=== PATIENT | male | born 1980 | race Caucasian/White ===

== ENCOUNTER 2022-09-16 15:47 | Emergency (ER) | payer OTHER, SELFPAY ==
--- NOTE | 2022-09-16 15:50 | XRR_ITS ---
PROCEDURE INFORMATION: Exam: XR Chest Exam date and time: 09/16/2022 4:03 PM Age: 42 years old Clinical indication: Pain; Angina pectoris; Additional info: Chest pain TECHNIQUE: Imaging protocol: Radiologic exam of the chest. Views: 1 view. COMPARISON: No relevant prior studies available. FINDINGS: Lungs: Unremarkable. No consolidation. Pleural spaces: Unremarkable. No pleural effusion. No pneumothorax. Heart/Mediastinum: Unremarkable. No cardiomegaly. Diaphragm: There is mild elevation of the right hemidiaphragm Bones/joints: Un. remarkable. XR/XR chest 1V portable [id number] IMPRESSION: No acute findings.
--- NOTE | 2022-09-16 15:55 | ECG_ITS ---
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 Measurements Intervals [place] Rate: 87 P: 42 ME: 119 QRS: 52 QRSD: 84 T: 54 QT: 367 QTc: 442 Interpretive Statements SINUS RHYTHM WITH SHORT ME INTERVAL No previous ECG available for comparison Electronically Signed On 09-16-2022 20:26:58 CDT by Man Driver M.D. [id number]
[2022-09-16 15:57] VITALS: BP 147/97; PULSE 103; RESP 14; TEMP 36.7; O2SAT 96; BMI 30.7
[2022-09-16 16:28] LABS: Basophils # 0.1 10^3/uL (0.0-0.1); Basophils % 0.3 %; Hematocrit 43.3 % (42.0-52.0); Hemoglobin 14.7 g/dL (11.7-16.6); Lymphocytes % 5.5 %; Mean Corpuscular HGB Conc 33.9 g/dL (30.0-36.0); Mean Corpuscular Hemoglobin 28.7 pg (28.0-34.0); Mean Corpuscular Volume 84.4 fl (80-94); Mean Platelet Volume 10.1 fL (7.4-10.4); Monocytes # 0.5 10^3/uL (0.2-0.9); Monocytes % 2.8 %; Neutrophils # 16.97 10^3/uL (1.8-7.7); Neutrophils % 90.7 %; Nucleated Red Blood Cells % 0 %; Platelet Count 412 10^3/cmm (130-400); Red Blood Count 5.13 10^6/uL (4.1-5.3); White Blood Count 18.7 10^3/uL (4.0-10.0)
[2022-09-16 16:53] LABS: Alanine Aminotransferase 50 U/L (0-41); Albumin Level 4.7 g/dL (3.5-5.2); Alkaline Phosphatase 121 U/L (40-130); Anion Gap 17.4 (5-19); Aspartate Amino Transferase 30 U/L (0-40); Blood Urea Nitrogen 15 mg/dL (6-20); Calcium 9.4 mg/dL (8.5-10.5); Carbon Dioxide 22 mmol/L (22-29); Chloride 102 mmol/L (98-107); Globulin 3.1 g/dL (1.3-4.6); Glomerular Filtration Rate 66.4 mL/min (90-130); Glucose 142 mg/dL (65-115); Osmolality Calculated 287 mOsm/kg (285-295); Potassium 4.4 mmol/L (3.5-5.1); Sodium 137 mmol/L (136-145); Total Bilirubin 0.7 mg/dL (0.15-1.2); Total Protein 7.8 g/dL (6.6-8.7)
[2022-09-16 16:55] LABS: Troponin(5th) Baseline 6 ng/L (0-15)
[2022-09-16 17:17] LABS: Lipase 26 U/L (13-60)
--- NOTE | 2022-09-16 17:28 | CTR_ITS ---
PROCEDURE INFORMATION: Exam: CT Abdomen And Pelvis With Contrast Exam date and time: 09/16/2022 6:15 PM Age: 42 years old Clinical indication: Abdominal pain; Epigastric; Additional info: Epigastric tenderness, n/v TECHNIQUE: Imaging protocol: Computed tomography of the abdomen and pelvis with contrast. Axial, coronal and sagittal reformatted images were created and reviewed. Radiation optimization: All CT scans at this facility use at least one of these dose optimization techniques: automated exposure control; mA and/or kV adjustment per patient size (includes targeted exams where dose is matched to clinical indication); or iterative reconstruction. Contrast material: OMNI 350; Contrast volume: 100 ml; Contrast route: INTRAVENOUS (IV); REPORTING DATA: Count of CT and Cardiac NM exams in prior 12 months: This patient has received 0 known CTs and 0 known cardiac nuclear medicine studies in the 12 months prior to the current study. COMPARISON: CR XR chest 1V portable [id number] 09/16/2022 4:03 PM RADIATION DOSE METRICS: Total DLP (mGy-cm): 835.73 FINDINGS: Liver: Diffuse hepatic steatosis. Gallbladder and bile ducts: No radiodense gallstones. No biliary ductal dilatation. Pancreas: Unremarkable. Spleen: Unremarkable. Adrenal glands: Normal. No mass. Kidneys and ureters: No mass. No radiodense calculi. No hydronephrosis. Stomach and bowel: No bowel wall thickening. No obstruction. No pneumatosis. Appendix: Normal. Intraperitoneal space: No free fluid. No organized fluid collection. No free air. Vasculature: Unremarkable. No aneurysm. Lymph nodes: No pathologically enlarged lymph nodes. Urinary bladder: Unremarkable as visualized. Reproductive: Unremarkable. Bones/joints: No acute osseous abnormality. Mild degenerative changes. Soft tissues: Unremarkable. CT/CT abdomen pelvis w con* [id number] IMPRESSION: 1. No CT evidence of acute intra-abdominal or pelvic pathology. 2. Additional findings, as above.
--- NOTE | 2022-09-16 17:30 | W.ED.ABDPA2 ---
HPI - Abdominal Pain General: Chief Complaint: Abdominal Pain Stated Complaint: chest pain, nausea Time Seen by Provider: 09/16/22 17:22 History of Present Illness: Patient is a 42-year-old male who comes to the ED with abdominal pain nausea and vomiting. Patient says he woke up at around 3:00 this morning and he had pain in the epigastric region, nausea and vomiting. He rates the pain in his abdomen as an 8 out of 10. Pain radiates up into his chest. He has been having multiple episodes of nausea and vomiting since onset of symptoms. He has not been able to keep any food or fluids down. Denies any history of pancreatitis or gastritis. Associated Symptoms: Reports nausea and vomiting; Denies chills, constipation, diarrhea, dysuria, fever(s), hematochezia and hematuria Review of Systems Const: Denies: fever(s), chills or fatigue Eyes: Denies: change in vision or eye discomfort ENMT: Denies: throat pain, odynophagia, nasal discharge or nasal congestion Card: Denies: chest pain, palpitations, edema, swelling of feet/ankles, dyspnea on exertion or orthopnea Resp: Denies: dyspnea, productive cough or non-productive cough GI: Reports: abdominal pain, nausea and vomiting; Denies: diarrhea, constipation or hematochezia : Denies: flank pain, difficulty urinating, dysuria or hematuria Musc: Denies: neck pain, back pain or extremity swelling Skin/Breast: Denies: rash or new lesions Neuro: Denies: headache(s), numbness in extremities or weakness in extremities [facility] PFSH: Medical History (Updated 09/16/22 @ 19:35 by STEF Gonzáles) No pertinent family history Surgical History (Updated 09/16/22 @ 17:33 by STEF Gonzáles) No pertinent past surgical history Physical Exam Narrative: EXAM NARRATIVE: Patient is sitting comfortably on exam bed but having episodes of gagging, but no emesis. Const: COMMON NORMALS: patient oriented x3 and alert HENMT: COMMON NORMALS: normocephalic HEAD & SCALP: normocephalic MOUTH: Normal oral and palatal mucosa present THROAT: posterior oropharynx normal and uvula midline Neck/C-Spine: COMMON NORMALS: supple GENERAL: Yes normal visual inspection Resp: COMMON NORMALS: normal respiratory effort, No retractions, No use of accessory muscles and clear to auscultation bilaterally AUSCULTATION: clear to auscultation bilaterally Cardio: COMMON NORMALS: regular rate, regular rhythm, S1 normal heart sound present, S2 normal heart sound present, No gallops present (Cardio), No clicks present (Cardio), No murmurs present (Cardio) and Peripheral pulses 2+ throughout RATE: regular rate RHYTHM: regular rhythm HEART SOUNDS: S1 normal heart sound present and S2 normal heart sound present PERIPHERAL PULSES: Peripheral pulses 2+ throughout GI: COMMON NORMALS: Normal to inspection, nondistended, normoactive bowel sounds present, Soft to palpation and no masses PALPATION: Yes Soft to palpation and Yes Tenderness to palpation present (GI) Details: other (Epigastric pain) : COMMON NORMALS: Yes no CVA tenderness BLADDER/KIDNEY EXAM: Yes no CVA tenderness Back/Pelvis: COMMON NORMALS: no CVA tenderness Extremity: COMMON NORMALS: normal to inspection Neuro: COMMON NORMALS: patient oriented x3 SENSORIUM/ORIENTATION: Yes alert GAIT: Yes Normal gait present Skin: GENERAL SKIN EXAM: dry skin Course Vital Signs: Vital signs: Vital Signs Temperature 98.0 F 09/16/22 19:41 Pulse Rate 75 09/16/22 19:41 Respiratory Rate 17 09/16/22 19:41 Blood Pressure 187/101 09/16/22 19:41 Pulse Oximetry 98 09/16/22 19:41 Oxygen Delivery Me thod Room Air 09/16/22 17:58 MDM - Abdominal Pain Medical Decision Making Patient is a 42-year-old male who comes to the ED with abdominal pain nausea and vomiting. Patient says he woke up at around 3:00 this morning and he had pain in the epigastric region, nausea and vomiting. He rates the pain in his abdomen as an 8 out of 10. He has been having multiple episodes of nausea and vomiting since onset of symptoms. He has not been able to keep any food or fluids down. Denies any history of pancreatitis or gastritis. Vitals are stable. Patient is nauseous and having episodes of gagging, but no emesis during exam. Tenderness to the epigastric region. Rest of exam is benign. White blood cell count 18.7 and the rest of CBC, CMP and lipase are unremarkable. Troponins negative. EKG showed no acute findings. Chest x-ray was unremarkable. CT of abdomen pelvis showed no acute findings. Patient was given IV fluids, morphine, Zofran and Pepcid. His symptoms improved and he was able to tolerate p.o. fluids here in the ED. Patient was diagnosed with gastritis and was stable for discharge home. Sent home with a prescription for Pepcid and Zofran. Return to ED precautions given. Clear liquid diet for the next 12 to 24 hours and slowly advance diet as tolerated. Patient understood and agreed with plan. Lab Data I reviewed the patient's lab results. 09/16/22 16:21 09/16/22 16:21 Labs/Radiology: Radiology Impressions Chest X-Ray 09/16/22 15:50 IMPRESSION: No acute findings. Abdomen/Pelvis CT 09/16/22 17:28 IMPRESSION: 1. No CT evidence of acute intra-abdominal or pelvic pathology. 2. Additional findings, as above. Laboratory Results WBC 18.7 10^3/uL (4.0-10.0) H 09/16/22 16:21 RBC 5.13 10^6/uL (4.1-5.3) 09/16/22 16:21 Hgb 14.7 g/dL (11.7-16.6) 09/16/22 16:21 Hct 43.3 % (42.0-52.0) 09/16/22 16:21 MCV 84.4 fl (80-94) 09/16/22 16:21 MCH 28.7 pg (28.0-34.0) 09/16/22 16:21 MCHC 33.9 g/dL (30.0-36.0) 09/16/22 16:21 RDW 13.0 % (12.1-15.1) 09/16/22 16:21 Plt Count 412 10^3/cmm (130-400) H 09/16/22 16:21 MPV 10.1 fL (7.4-10.4) 09/16/22 16:21 Neut % (Auto) 90.7 % 09/16/22 16:21 Lymph % (Auto) 5.5 % 09/16/22 16:21 George % (Auto) 2.8 % 09/16/22 16:21 Eos % (Auto) 0.0 % 09/16/22 16:21 Baso % (Auto) 0.3 % 09/16/22 16:21 Neut # (Auto) 16.97 10^3/uL (1.8-7.7) H 09/16/22 16:21 Lymph # (Auto) 1.0 10^3/uL (0.8-4.8) 09/16/22 16:21 George # (Auto) 0.5 10^3/uL (0.2-0.9) 09/16/22 16:21 Eos # (Auto) 0.0 10^3/uL (0.0-0.8) 09/16/22 16:21 Baso # (Auto) 0.1 10^3/uL (0.0-0.1) 09/16/22 16:21 Nucleated RBC % (auto) 0 % 09/16/22 16:21 Nucleated RBCs # 0.0 /100WBC 09/16/22 16:21 Sodium 137 mmol/L (136-145) 09/16/22 16:21 Potassium 4.4 mmol/L (3.5-5.1) 09/16/22 16:21 Chloride 102 mmol/L (98-107) 09/16/22 16:21 Carbon Dioxide 22 mmol/L (22-29) 09/16/22 16:21 Anion Gap 17.4 (5-19) 09/16/22 16:21 BUN 15 mg/dL (6-20) 09/16/22 16:21 Creatinine 1.2 mg/dL (0.7-1.2) 09/16/22 16:21 GFR Calculation 66.4 mL/min (90-130) L 09/16/22 16:21 Glucose 142 mg/dL (65-115) H 09/16/22 16:21 Calculated Osmolality 287 mOsm/kg (285-295) 09/16/22 16:21 Calcium 9.4 mg/dL (8.5-10.5) 09/16/22 16:21 Total Bilirubin 0.7 mg/dL (0.15-1.2) 09/16/22 16:21 AST 30 U/L (0-40) 09/16/22 16:21 ALT 50 U/L (0-41) H 09/16/22 16:21 Alkaline Phosphatase 121 U/L (40-130) 08/01/23 16:21 Troponin T Baseline 6 ng/L (0-15) 09/16/22 16:21 Total Protein 7.8 g/dL (6.6-8.7) 09/16/22 16:21 Albumin 4.7 g/dL (3.5-5.2) 09/16/22 16:21 Globulin 3.1 g/dL (1.3-4.6) 09/16/22 16:21 Lipase 26 U/L (13-60) 09/16/22 16:21 EKG Data EKG 1: EKG interpretation date: 09/16/22 Interpretation: Normal sinus rhythm, no ST segment elevation or depression seen. 72 bpm. Discharge Plan Discharge Patient Disposition: Home Clinical Impression: Gastritis Qualifiers: Gastritis type: unspecified gastritis Chronicity: acute Gastritis bleeding: without bleeding Qualified Code(s): K29.00 - Acute gastritis without bleeding Condition: Stable Prescriptions: New Pepcid 20 mg tablet 20 mg PO BID 42 Days Qty: 84 0RF ondansetron 4 mg tablet,disintegrating 4 mg PO Q8H PRN (Reason: nausea and vomiting) Qty: 20 0RF Discharge Orders: Discharge ED (Routine); Ordered 09/16/22 Ordered By: Vicente García Discharge Diet: Advance as tolerated and Clear Liquid Discharge Activity: Increase activity as tolerated Patient Instructions: Gastritis (ED) Activity Restrictions/Additional Instructions: Follow-up with medical provider as directed within the next 7 to 10 days for reevaluation. Clear liquid diet for the next 12 to 24 hours and slowly advance diet as tolerated. Take medications as prescribed. Make sure you drink plenty of fluids and stay hydrated. return to the ER or your medical provider if condition worsens. Please read and understand discharge instructions. Thank you for choosing [facility] for your healthcare needs today. Please realize this is an emergency room and that we are providing you with a medical screening exam and this may not be complete and all inclusive of all the testing and or work up that you may need to determine your ailment or severity of your illness. It is very important that you follow up as instructed or that you return to the Emergency Department should you have concerns or if your condition changes or worsens in any way. Coding Level of Care Code ED Manager Mechanical Maintenance for Eleazar Sheldon
[2022-09-16] MEDS: sodium chloride 0.9% 1,000 ML 999 ML IV (17:47)
[2022-09-16] MEDS: ondansetron 2 mg/ML SDV 2 mL 4 MG IVP (17:48)
[2022-09-16] MEDS: morphine 4 mg/mL SDV 1 mL IVP (17:50)
[2022-09-16] MEDS: famotidine 20 mg/2 mL INJ 40 MG IVP (17:51)
[2022-09-16 17:58] VITALS: BP 187/101; PULSE 75; RESP 17; O2SAT 98
--- NOTE | 2022-09-16 18:02 | ECG_ITS ---
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 Measurements Intervals [place] Rate: 72 P: 31 MT: 133 QRS: 72 QRSD: 110 T: 30 QT: 419 QTc: 459 Interpretive Statements SINUS RHYTHM WITH MARKED SINUS ARRHYTHMIA Compared to ECG 09/16/2022 15:55:28 Short MT interval no longer present Electronically Signed On 09-16-2022 20:31:26 CDT by Man Driver M.D. [id number]
[2022-09-16] MEDS: iohexol 350 mg/mL 500 mL Btl (per mL) IV (18:17)
[2022-09-16 19:41] VITALS: BP 187/101; PULSE 75; RESP 17; TEMP 36.7; O2SAT 98
== END 2022-09-16 19:42 | disposition home or self-care (01) ==
PROVIDERS: Physician Assistant; Emergency Provider Physician Assistant
DX: K29.00 Acute gastritis without bleeding (principal)
CPT/HCPCS: 36415; 71045; 74177; 80053; 83690; 84484; 85025; 93005; 96374; 96375; 99285; J2270; J2405; J3490; J7030; Q9967

== ENCOUNTER → 2023-03-25 13:14 | Outpatient (BNVA) | payer OTHER, SELFPAY | PROVIDERS: Visit Provider Surgery | DX: K21.9 Gastro-esophageal reflux disease without esophagitis (principal) | CPT/HCPCS: 99203 ==

== ENCOUNTER 2023-03-26 12:18 | Day surgery (SDC) | payer OTHER, SELFPAY ==
[2023-03-26] MEDS: sodium chloride 0.9% 1,000 ML 30 ML IV (12:48)
[2023-03-26 12:50] VITALS: BP 127/74; PULSE 76; RESP 18; TEMP 36.1; O2SAT 95; BMI 33.9
--- NOTE | 2023-03-26 12:50 | ANES.PREANE2 ---
Pre-Anesthetic Assessment Height/Weight: Height 1.68 m Preop Diagnosis: GERD Operation Date: 03/26/23 13:25 Proposed Procedures p [address]50 egd K21.9(Not Applicable) - Huseyin Navarro MD Was Beta Ximena taken within 24 hours: N/A Was Clonidine taken within 24 hours: N/A Social No alcohol and No tobacco Exam alert, oriented x 3, clear to auscultation bilaterally and regular rate & rhythm Airway Submandibular: within normal limits Cervical ROM: within normal limits Mallampati: Class II Dentition: full Comments: Comments: Poor dentition History/ROS No significant history except as noted and No significant complaints Pulmonary None reported CV/HEM None reported None reported Hepatic None reported GI Gastroesophageal Reflux Disease Metabolic None reported Musc/skel None reported Neuropsych None reported Anesthetic Plan ASA status: 2 Anesthesia: Anesthesia Evaluation and MAC Risk of > 500 ml blood loss (7ml/kg in children): No Medications/Allergies Home Medications Medication Instructions Recorded Confirmed Last Taken Type ondansetron 4 mg disintegrating 4 mg PO Q8H PRN nausea and 09/16/22 03/26/23 03/25/23 Rx tablet vomiting #20 tabs fluoxetine 40 mg capsule 40 mg PO DAILY 03/25/23 03/26/23 03/25/23 History omeprazole 20 mg capsule,delayed 20 mg PO DAILY 03/25/23 03/26/23 03/25/23 History release risperidone 2 mg tablet 2 mg PO DAILY 03/25/23 03/26/23 03/25/23 History Allergies Allergy/AdvReac Type Severity Reaction Status Date / Time pecan nut Allergy ALGY-Anaphy Verified 03/26/23 12:42 laxis tetracycline Allergy ALGY-Anaphy Verified 03/26/23 12:42 laxis Current Medications Generic Name Dose Route Start Last Admin Trade Name Freq PRN Reason Stop Dose Admin Sodium Chloride 1,000 mls @ 30 mls/hr 03/26/23 12:30 03/26/23 12:48 Sodium Chloride 0.9% IV 30 mls/hr .Q24H BULMARO Administration PFSH Anesthesia Medical History No pertinent family history Surgical History No pertinent past surgical history Social History (Updated 03/25/23 @ 13:25 by CLAY Mitchell) Smoking and tobacco/nicotine status: never used tobacco/nicotine Alcohol intake: never Data Anesthesia Cardiac Studies: No Data to Display
--- NOTE | 2023-03-26 13:05 | P.HPUD_ITS ---
Surgery/Procedure H&P Update DATE OF PROCEDURE: March 26, 2023 DATE H&P PERFORMED: 03/25/23 H&P UPDATE INFORMATION: I have reviewed H&P completed within last 30 days, I have examined patient prior to procedure, No changes to prior documentation and H&P is in [facility] on date indicated PREOP DIAGNOSIS: GERD PLANNED PROCEDURE: Operation Date: 03/26/23 13:25 Proposed Procedures p [id number] egd K21.9(Not Applicable) - Huseyin Navarro MD
[2023-03-26 13:22] VITALS: BP 95/63; PULSE 97; RESP 20; TEMP 36.3; O2SAT 93
[2023-03-26 13:40] VITALS: BP 113/76; PULSE 88; RESP 16; O2SAT 98
--- NOTE | 2023-03-26 14:18 | ANE.PACU2 ---
Inpatient post-anesthesia follow up: Vital signs: Temperature 97.3 F Pulse Rate 88 Respiratory Rate 16 Blood Pressure 113/76 Pulse Oximetry 98 Oxygen Delivery Me thod Room Air Oxygen Flow Rate 4 Fraction of Inspir ed Oxygen Hydration adequate: Yes Nausea and vomiting: Yes Pain level: 1 Mental status: Baseline Additional Comments: no apparent anesthetic complications noted.
== END 2023-03-26 13:49 | disposition home or self-care (01) ==
PROVIDERS: Visit Provider Surgery
PROC: 0DJ08ZZ Inspection of Upper Intestinal Tract, Via Natural or Artificial Opening Endoscopic (ICD-10-PCS; CPT 43235; principal; 2023-03-26 13:25)
DX: K21.9 Gastro-esophageal reflux disease without esophagitis (principal); K29.70 Gastritis, unspecified, without bleeding; K29.80 Duodenitis without bleeding
CPT/HCPCS: 43239; 88305; J2704; J7030

== ENCOUNTER → 2023-04-08 10:02 | Outpatient (BNVA) | payer OTHER, SELFPAY | PROVIDERS: Visit Provider Surgery | DX: Z09 Encounter for follow-up examination after completed treatment for conditions other than malignant neoplasm (principal); K21.9 Gastro-esophageal reflux disease without esophagitis | CPT/HCPCS: 99212 ==